=== PATIENT | male | born 1935 | race Caucasian/White ===

== ENCOUNTER → 2017-11-29 14:50 | Outpatient (CLI) | payer MEDICARE, OTHER, SELFPAY ==
--- NOTE | 2017-11-29 | DI.MRI.S_ITS ---
PROCEDURE: MR ANKLE LT WO CON INDICATIONS: PAIN IN LEFT ANKLE TECHNIQUE: Noncontrast sagittal T1 spin echo and T2 fast spin echo with fat saturation, axial proton density fast spin echo and T2 fast spin echo with fat saturation, coronal T1 spin echo and T2 fast spin echo with fat saturation through the ankle/hindfoot. COMPARISON: [facility], CR, XR ANKLE LT MIN 3V, 11/25/2017, 17:42. FINDINGS: Image quality: There is mild heterogeneous fat saturation. Bones and joints: No bone marrow contusions or fractures. No hindfoot coalitions. No osteochondral injuries of the talar dome. No pathologic joint effusions. Medial structures: The posterior tibialis, flexor digitorum longus, and flexor hallucis longus tendons are intact with minimal tenosynovial fluid. The posterior tibial neurovascular bundle appears normal within the tarsal tunnel, without extrinsic mass effect. The deltoid and spring ligaments appear intact. Lateral structures: The anterior talofibular, calcaneofibular, and posterior talofibular ligaments appear intact. More superiorly, the anterior and posterior tibiofibular ligaments appear intact, as is the intermalleolar ligament. The tibiofibular syndesmosis is normal in width at 2 mm or less. The peroneus longus and brevis tendons demonstrate normal location and appear intact with mild tendinopathy and a small amount of tenosynovial fluid. Adjacent bony peroneal tubercle and retrotrochlear prominence are normal in size. The sinus tarsi demonstrates preserved fatty signal. The calcaneonavicular and calcaneocuboid components of the bifurcate ligament appear intact. The dorsal calcaneocuboid ligament appears intact. Anterior structures: The tibialis anterior, extensor hallucis longus, and extensor digitorum longus tendons appear intact. The dorsal talonavicular ligament appears intact. Posterior and plantar structures: Achilles tendon demonstrates mild tendinosis without evidence of rupture. There is a small amount of fluid in the retrocalcaneal bursa and mild adjacent edema within Kager's fat pad. There is mild thickening of the central and lateral cords of the plantar fascia with mild associated edema proximally compatible with sequelae of mild plantar fasciitis. No abductor digiti quinti muscle atrophy to suggest Young neuropathy. IMPRESSION: 1. Mild tendinosis of the Achilles tendon without evidence of rupture. Small amount of fluid in the retrocalcaneal bursa with edema in Kager's fat pad may reflect a mild bursitis as well as mild peritendinitis. 2. Mild tenosynovitis of the peroneal tendons which demonstrates mild tendinopathy. 3. Sequelae of mild plantar fasciitis. Dictated by: Garrett Luong M.D. on 11/29/2017 at 17:05 Approved by: Garrett Luong M.D. on 11/29/2017 at 17:10
== END ==
PROVIDERS: Family Provider Internal Medicine; PCP Internal Medicine; Visit Provider Student in an Organized Health Care Education/Training Program
DX: M65.872 Other synovitis and tenosynovitis, left ankle and foot (principal); M72.2 Plantar fascial fibromatosis
CPT/HCPCS: 73721

== ENCOUNTER 2018-03-14 08:29 | Day surgery (SDC) | payer MEDICARE, OTHER, SELFPAY ==
[2018-03-14 09:38] VITALS: BP 117/69; PULSE 49; RESP 15; TEMP 36.1; O2SAT 100; BMI 18.7
[2018-03-14] MEDS: CATARACT EYE COMPOUND (10 DROPS/SYRINGE) 3 DROPS EYE-OP (09:40)
[2018-03-14] MEDS: PROPARACAINE 0.5% OPHTH SOL 2 DROPS EYE-OP (09:50)
--- NOTE | 2018-03-14 10:11 | P.OP.PRE_ITS ---
Pre-operative Note Interval Note Changes: No
--- NOTE | 2018-03-14 10:11 | PM.PREOP ---
Pre-operative Note Interval Note Changes: No
--- NOTE | 2018-03-14 10:12 | P.OP_ITS ---
Operative Date/Time/Diagnoses Pre-op diagnosis: Cataract Right eye Post-op diagnosis: same Procedure & Clinicians Procedure: Cataract Surgery Same procedure as scheduled: Yes Surgeon: Bruno Castorena Anesthesia Type: MAC +/- and Sedation Operative Notes Procedure in detail: Patient brought to the operating suite. Tetracaine drops placed in the right eye. Patient was prepped and draped in sterile manner. Wire lid speculum was placed in the eye. Betadine drops were placed on the eye. This was irrigated. Lidocaine jelly was placed on the eye. A paracentesis port was created with a side-port blade. 0.1 mL 1% preservative free lidocaine was injected into the anterior chamber. The anterior chamber was deepened with viscoelastic. 2.6 mm keratome was used to create a temporal clear corneal incision. Cystotome and Utrata forceps were used to create continuous tear capsulorrhexis. Balanced salt solution was used to hydro dissect the nucleus. The phacoemulsification handpiece was inserted and the nucleus was removed using the stop and chop technique. The irrigation aspiration handpiece was inserted and the remaining cortex was removed. Anterior chamber was deepened with viscoelastic. An Flores ZCB00 intraocular lens with a power of 19.0 was injected into the capsular bag. Irrigation aspiration handpiece was inserted and the remaining viscoelastic was removed. Incision was hydrated with balanced salt solution and found to be leak free with pressure with Weck- Ritu sponges. 0.1 mL Vigamox injected anterior chamber. 0.3 mL Kenalog 10 mg was injected subconjunctivally. Lid speculum was removed. The patient left the operating room in excellent condition. Complications: none Condition: stable Disposition: same day surgery
--- NOTE | 2018-03-14 10:12 | SUR.OPER ---
Supine on eye stretcher, head on extension cradle secured with tape. Arms tucked at sides with blanket. Pillow under knees.
[2018-03-14] MEDS: BALANCED SALT IRRIG SOLN NO.2 500 ML, EPINEPHrine 1 MG IRR (10:22)
[2018-03-14] MEDS: LIDOCAINE 1% 10 ML INJ INJ (10:22)
[2018-03-14] MEDS: TRIAMCINOLONE 50 MG/5 ML VIAL INJ (10:22)
[2018-03-14] MEDS: CHONDROIDTIN/SOD HYALURONATE 1.05 ML SYRINGE INTRAOCULA (10:23)
[2018-03-14] MEDS: TETRACAINE 0.5% OPHTH DROPS 15 ML 2 DROPS EYE-RIGHT (10:23)
[2018-03-14] MEDS: LIDOCAINE JELLY 2% 5 ML 1 APPLIC TOP (10:23)
[2018-03-14] MEDS: MOXIFLOXACIN OPHTH DROPS 3 ML BOTTLE 2 DROPS INJ (10:23)
[2018-03-14 10:40] VITALS: BP 99/58; PULSE 49; RESP 14; TEMP 36.4; O2SAT 100
[2018-03-14 11:00] VITALS: BP 99/52; PULSE 49; RESP 16; TEMP 36.4; O2SAT 100
[2018-03-14 11:50] VITALS: BP 105/58; PULSE 50; RESP 16; TEMP 36.4; O2SAT 100
--- NOTE | 2018-03-14 12:00 | SUR.PHASEII ---
pt had long recovery due to feeling very sleepuy / confused and requiring o2 post op for 20 minutes
== END 2018-03-14 12:00 | disposition home or self-care (01) ==
LOC: OR 08:30
PROVIDERS: PCP Internal Medicine; Visit Provider Ophthalmology
DX: H25.11 Age-related nuclear cataract, right eye (principal)
CPT/HCPCS: J0171; J2250; J3010; J3301

== ENCOUNTER 2018-04-04 07:22 | Day surgery (SDC) | payer MEDICARE, OTHER, SELFPAY ==
[2018-04-04 08:24] VITALS: BP 105/64; PULSE 54; RESP 16; TEMP 36.3; O2SAT 100; BMI 18.8
[2018-04-04] MEDS: PROPARACAINE 0.5% OPHTH SOL 2 DROPS EYE-OP (08:25)
[2018-04-04] MEDS: CATARACT EYE COMPOUND (10 DROPS/SYRINGE) 3 DROPS EYE-OP (08:31)
--- NOTE | 2018-04-04 09:10 | P.OP_ITS ---
Operative Date/Time/Diagnoses Pre-op diagnosis: Cataract Left eye Post-op diagnosis: same Procedure & Clinicians Surgeon: Bruno Castorena Anesthesia Type: MAC +/- and Sedation Operative Notes Procedure in detail: Patient brought to the operating suite. Tetracaine drops placed in the left eye. Patient was prepped and draped in sterile manner. Wire lid speculum was placed in the eye. Betadine drops were placed on the eye. This was irrigated. Lidocaine jelly was placed on the eye. A paracentesis port was created with a side-port blade. 0.1 mL 1% preservative free lidocaine was injected into the anterior chamber. The anterior chamber was deepened with viscoelastic. 2.6 mm keratome was used to create a temporal clear corneal incision. Cystotome and Utrata forceps were used to create continuous tear capsulorrhexis. Balanced salt solution was used to hydro dissect the nucleus. The phacoemulsification handpiece was inserted and the nucleus was removed using the stop and chop technique. The irrigation aspiration handpiece was inserted and the remaining cortex was removed. Anterior chamber was deepened with viscoelastic. An Flores ZCB00 intraocular lens with a power of 19.0 was injected into the capsular bag. Irrigation aspiration handpiece was inserted and the remaining viscoelastic was removed. Incision was hydrated with balanced salt solution and found to be leak free with pressure with Weck- Ritu sponges. 0.1 mL Vigamox injected anterior chamber. 0.3 mL Kenalog 10 mg was injected subconjunctivally. Lid speculum was removed. The patient left the operating room in excellent condition. Complications: none Condition: stable Disposition: same day surgery
--- NOTE | 2018-04-04 09:10 | P.OP.PRE_ITS ---
Pre-operative Note Interval Note Changes: No
--- NOTE | 2018-04-04 09:10 | PM.PREOP ---
Pre-operative Note Interval Note Changes: No
[2018-04-04] MEDS: CHONDROIDTIN/SOD HYALURONATE 1.05 ML SYRINGE INTRAOCULA (09:22)
[2018-04-04] MEDS: MOXIFLOXACIN OPHTH DROPS 3 ML BOTTLE 2 DROPS INJ (09:23)
[2018-04-04] MEDS: TETRACAINE 0.5% OPHTH DROPS 15 ML 2 DROPS EYE-LEFT (09:23)
[2018-04-04] MEDS: TRIAMCINOLONE 50 MG/5 ML VIAL INJ (09:23)
[2018-04-04] MEDS: LIDOCAINE JELLY 2% 5 ML 1 APPLIC TOP (09:23)
[2018-04-04] MEDS: PHENYLEPHRINE/LIDOCAINE VIAL (OR) 0.2 ML EYE-OP (09:23)
[2018-04-04] MEDS: BALANCED SALT IRRIG SOLN NO.2 500 ML, EPINEPHrine 1 MG IRR (09:24)
[2018-04-04 09:38] VITALS: BP 104/60; PULSE 65; RESP 15; TEMP 36.2; O2SAT 99
--- NOTE | 2018-04-04 09:41 | SUR.PHASEII ---
pt tolerating sips of water, denies any pain or discomfort.
[2018-04-04 09:55] VITALS: BP 106/61; PULSE 66; RESP 16; TEMP 36.2; O2SAT 98
== END 2018-04-04 10:00 ==
LOC: OR 07:23
PROVIDERS: PCP Internal Medicine; Visit Provider Ophthalmology
DX: H25.12 Age-related nuclear cataract, left eye (principal)
CPT/HCPCS: J0171; J3301